=== PATIENT | male | born 1980 | race African-American/Black ===

== ENCOUNTER 2023-08-08 09:29 | Emergency (ER) | payer MEDICARE, MEDICAID ==
[~2023-08-08] VITALS: Ht 165.1 cm; Wt 81.6 kg
[2023-08-08 09:39] VITALS: BP 131/92; TEMP 98.3
[2023-08-08 10:09] VITALS: O2SAT 99
== END 2023-08-08 10:09 | disposition home or self-care (01) ==
LOC: ER 09:47
DX: G47.00 Insomnia, unspecified (principal); Z59.00 Homelessness unspecified